=== PATIENT | female | born 1995 | race Caucasian/White ===

== ENCOUNTER 2016-12-29 07:21 | Emergency (ER) | payer BC ==
--- NOTE | 2016-12-29 08:13 | UC ---
Throat Pain/Nasal [place] HPI - HPI Summary HPI Summary: 2 DAYS OF COUGH, CONGESTION AND ST. PAIN WITH SWALLOWING. FEVER 101 LAST NIGHT. NO N/V/D. - History of Current Complaint Chief Complaint: UCRespiratory Stated Complaint: SORE THROAT Time Seen by Provider: 12/29/16 08:02 Hx Obtained From: Patient Hx Last Menstrual Period: 12/21/16 Onset/Duration: Gradual Onset, Lasting Days, Still Present Severity: Moderate Pain Intensity: 5 Pain Scale Used: 0-10 Numeric Cough: Nonproductive Associated Signs & Symptoms: Positive: Hoarseness, Nasal Discharge, Fever. Negative: Drooling, Sinus Discomfort, Vomiting - Allergies/Home Medications Allergies/Adverse Reactions: Allergies Allergy/AdvReac Type Severity Reaction Status Date / Time No Known Allergies Allergy Verified 12/29/16 07:33 Home Medications: Home Medications NK [No Home Medications Reported] 12/29/16 [History Confirmed 12/29/16] PMH/Surg Hx/FS Hx/Imm Hx Previously Healthy: Yes - Surgical History Surgical History: Yes Surgery Procedure, Year, and Place: detatched [facility] 2011 - Family History Known Family History: Positive: Other - positive [facility] for Sore throat Negative: Hypertension, Diabetes - Social History Alcohol Use: Occasionally Substance Use Type: None Smoking Status (MU): Never Smoked Tobacco Review of Systems Constitutional: Fever ENT: Sore Throat, Nasal Discharge Respiratory: Cough Cardiovascular: Negative Gastrointestinal: Negative All Other Systems Reviewed And Are Negative: Yes Physical Exam Triage Information Reviewed: Yes Appearance: Well-Appearing, No Pain Distress, Well-Nourished Vital Signs: Initial Vital Signs Temp 99.7 F 12/29/16 07:33 Pulse 99 12/29/16 07:33 Resp 20 12/29/16 07:33 BP 126/81 12/29/16 07:33 Pulse Ox 100 12/29/16 07:33 Vital Signs Reviewed: Yes Eyes: Positive: Conjunctiva Clear ENT: Positive: Hearing grossly normal, Pharyngeal erythema, TMs normal, Muffled/ hoarse voice. Negative: Tonsillar swelling, Tonsillar exudate Neck: Positive: Supple, Nontender, No Lymphadenopathy Respiratory Exam: Normal Cardiovascular: Positive: Tachycardia Abdomen Description: Positive: Soft Musculoskeletal: Positive: No Edema Neurological: Positive: Alert Psychological: Positive: Age Appropriate Behavior Skin: Negative: rashes Throat Pain/Nasal Course/Dx - Differential Dx/Diagnosis Differential Diagnosis/HQI/PQRI: Mononucleosis, Tonsillitis, Other - STREP Provider Diagnoses: ACUTE PHARYNGITIS Discharge - Discharge Plan Condition: Stable Disposition: HOME Patient Education Materials: Pharyngitis (ED) Forms: *Work Release Referrals: No Primary Care Phys,NOPCP [Primary Care Provider] - Additional Instructions: SYMPTOMS NOT CONSISTENT WITH STREP. LIKELY VIRAL SORE THROAT. REST, HYDRATE AND USE OTC MEDS NEEDED FOR DISCOMFORT/FEVER. OTC CHLORASEPTIC OR CEPACOL LOZENGES FOR SORE THROAT IF NEEDED. CALL THE NUMBER BELOW FOR ASSISTANCE IN ESTABLISHING WITH A PCP An additional resource available to assist in finding the appropriate physician for your health care needs is [facility] ([facility]). You may contact them by calling [phone].
== END 2016-12-29 08:21 | disposition home or self-care (01) ==
LOC: UCEAST 07:21
DX: J02.9 Acute pharyngitis, unspecified (principal)
CPT/HCPCS: 99211; G0463

== ENCOUNTER 2018-03-19 15:50 | Emergency (ER) | payer BC ==
[2018-03-19 16:25] VITALS: BP 113/60
[2018-03-19] MEDS ORDERED: Tetan/Diph/Pertus SYR(Tdap)* 0.5 ML SYR(BOOSTRIX) use SYR IM ONE (16:35)
--- NOTE | 2018-03-19 16:35 | UC ---
Laceration HPI - HPI Summary HPI Summary: stepped on a nail earlier today. Went through [employer]. - History Of Current Complaint Chief Complaint: JIGARkin Stated Complaint: STEPPED ON NAIL Time Seen by Provider: 03/19/18 16:27 Hx Obtained From: Patient Hx Last Menstrual Period: 02/28/18 Laceration Location: Foot - Left foot. Sole Mechanism Of Injury: Sharp Trauma Onset/Duration: Sudden Onset Severity: Moderate Pain Intensity: 0 Aggravating Factors: Movement - Pressure on it. Feet (Multiple View): 1 - Puncture wound. - Allergies/Home Medications Allergies/Adverse Reactions: Allergies Allergy/AdvReac Type Severity Reaction Status Date / Time No Known Allergies Allergy Verified 03/19/18 16:21 Home Medications: Home Medications Bcp 1 tab PO DAILY 03/19/18 [History] PMH/Surg Hx/FS Hx/Imm Hx - Surgical History Surgical History: Yes Surgery Procedure, Year, and Place: detatched retina 2011 - Family History Known Family History: Positive: Other - positive [facility] for Sore throat Negative: Cardiac Disease, Hypertension, Diabetes - Social History Occupation: Employed Full-time Lives: Alone Alcohol Use: Occasionally Substance Use Type: None Smoking Status (MU): Never Smoked Tobacco Have You Smoked in the Last Year: No - Immunization History Most Recent Tetanus Shot: unknown Review of Systems Is Patient Immunocompromised?: No All Other Systems Reviewed And Are Negative: Yes Physical Exam Triage Information Reviewed: Yes Appearance: Well-Appearing, No Pain Distress, Well-Nourished Vital Signs: Initial Vital Signs Temp 99.1 F 03/19/18 16:22 Pulse 84 03/19/18 16:22 Resp 18 03/19/18 16:22 BP 113/60 03/19/18 16:22 Pulse Ox 99 03/19/18 16:22 Vital Signs Reviewed: Yes Eyes: Positive: Conjunctiva Clear Neck exam: Normal Respiratory Exam: Normal Cardiovascular Exam: Normal Musculoskeletal Exam: Normal Neurological Exam: Normal Psychological Exam: Normal Skin: Positive: Other - Puncture wound lateral left mid-foot Laceration Repair - Laceration Repair 1 : No Repair Necessary - puncture wound Laceration Course/Dx - Differential Dx - Laceration/Wound Differental Diagnoses: Foreign Body, Laceration, Puncture Wound Provider Diagnoses: Puncture wound left foot. Discharge - Sign-Out/Discharge Documenting (check all that apply): Discharge/Admit/Transfer - Discharge Plan Condition: Stable Disposition: HOME Patient Education Materials: Puncture Wound (ED) Referrals: No Primary Care Phys,NOPCP [Primary Care Provider] - - Billing Disposition and Condition Condition: STABLE Disposition: HOME
== END 2018-03-19 16:53 | disposition home or self-care (01) ==
LOC: UCCORT 15:50
DX: S91.332A Puncture wound without foreign body, left foot, initial encounter (principal); W22.8XXA Striking against or struck by other objects, initial encounter; Y93.9 Activity, unspecified; Y92.9 Unspecified place or not applicable
CPT/HCPCS: 90715; 99212; G0463